=== PATIENT | female | born 1995 | race Caucasian/White ===

== ENCOUNTER 2025-02-02 05:05 | Inpatient (IN) ==
[2025-02-02 05:52] LABS: BASOPHILS % (AUTO) 0.3 %; EOSINOPHILS # (AUTO) 0.1 10^3/uL (0.0-0.7); HCT - HEMATOCRIT 32.5 % (37.0-47.0); HGB - HEMOGLOBIN 10.3 g/dL (12.0-16.0); LYMPHOCYTES # (AUTO) 2.5 10^3/uL (1.5-3.5); LYMPHOCYTES % (AUTO) 21.7 %; MEAN CORPUSCULAR HEMOGLOBIN 26.2 pg (27.0-31.0); MEAN CORPUSCULAR HGB CONC 31.7 g/dL (32.0-36.0); MEAN CORPUSCULAR VOLUME 82.7 fL (81.0-99.0); MEAN PLATELET VOLUME 9.3 fL (7.9-10.8); MONOCYTES # (AUTO) 0.8 10^3/uL (0.0-1.0); MONOCYTES % (AUTO) 7.3 %; NEUTROPHILS # (AUTO) 7.9 10^3/uL (1.5-6.6); NEUTROPHILS % (AUTO) 68.7 %; PLT - PLATELET COUNT 430 10^3/uL (130-450); RED BLOOD COUNT 3.93 10^6/uL (4.20-5.40); RED CELL DISTRIBUTION WIDTH 13.4 % (12.0-15.0); WHITE BLOOD COUNT 11.5 x10^3/uL (4.8-10.8)
[2025-02-02] MEDS: LACTATED RINGERS 1,000 ML IV SCH (06:12)
[2025-02-02] MEDS: ceFAZolin (2G) 2 GM in SODIUM CHLORIDE 0.9% MINIBAG 100 ML IV ONE (06:14)
[2025-02-02] MEDS: ACETAMINOPHEN 500 MG TABLET PO ONE (06:17)
[2025-02-02] MEDS: CITRIC ACID/SODIUM CITRATE 15 ML UDC PO ONE (06:18)
--- NOTE | 2025-02-02 07:05 | HISTORY & PHYSICAL EXAMINATION ---
Admit History Smoking Status: Never smoker Other Maternal History Other Maternal History: Patient is a 29-year-old G2, P1 at 39 weeks 1 day gestation presenting for scheduled primary low-transverse section. She had a history of shoulder dystocia and did not want to have that risk again. She is having some contractions currently. Good movement. Denies loss of fluid. No CARTER/BV or RUQP. No vaginal bleeding. Denies nausea and vomiting. All other symptoms reviewed and were negative except per HPI. Course G2, P1 History of preeclampsia: Developed preeclampsia after last . Was readmitted with magnesium and stayed for about 3 days for blood pressure control. Started aspirin at 12 weeks. History of shoulder dystocia: Per patient lasted about 30 seconds. Was recommended to have a scheduled due to this. Had a 7 pound baby. -Planning on primary low-transverse section, especially given fetus large in the 90th percentile and concerns over repeat shoulder dystocia. History of VSD: Will get recrods from previous history. Referral to [facility]. , but they want her to see cardiology first. Declined need for echocardiogram as she had one several years ago that was normal. [facility] recommends in each , but patient declines. -Had a successful vaginal delivery prior, and then like to be a problem. Now he is also cleared. -Normal echocardiogram. No additional follow up needed. CF carrier, negative LMP: 05/04/2024 BEVER[place] by LMP: 02/08/2025 US: 06/24/2024 @ 7+0 (BEVERLY 02/10/25) Final BEVERLY: 02/08/2025 Pre- Weight: 190 BMI: 32.5 Blood type: A+ Antibody: Negative CBC: PLT 252 HCT 32.1 HGB 10.8 RUB: Immune VZV: Immune HBsAg: Negative HepC: NR RPR/AB-EIA: NR HIV: NR PAP: 04/03/2023 NILM GC/CT: neg from [facility]. HSV: denies Genetic testing:CF carrier, FOB- Neg Covid: Declined Flu: Declined Placenta:Placenta posterior without previa. Third-trimester EFW:93rd percentile, 2186 g 50gm: 137; A1C 4.6 TDAP: 12/31/2024 Breast Pump: 11/25/2024 3rd trimester PLT 252; 32.1/10.8 RPR:Nonreactive GBS: 01/13/2025 positive Delivery plan: Primary section Contraception: HPI Current : Vital Signs Temperature 36.8 C 02/02/25 05:54 Pulse Rate 80 02/02/25 05:54 Respiratory Rate 17 02/02/25 05:54 Blood Pressure 113/77 02/02/25 05:54 Meds/Allgy Home Medications Ambulatory Orders Medication Instructions Recorded Confirmed aspirin 81 mg tablet,delayed 81 mg PO QDAY 11/11/24 01/25/25 release (Adult Aspirin Regimen) vits no.126-ferrous fum tab PO QDAY 11/11/24 01/25/25 28 mg iron-folic acid 800 mcg tablet (Classic ) famotidine 20 mg tablet 20 mg PO BID #60 tabs 01/07/25 01/25/25 Allergies Allergies Allergy/AdvReac Type Severity Reaction Status Date / Time No Known Drug Allergies Allergy Verified 01/13/25 13:24 PFSH Active Problems All Active Problems (Updated 02/02/25 @ 07:10 by Gera Gacria MD) 39 weeks gestation of (Acute) Sore throat (Acute) History of shoulder dystocia in prior (Acute) Supervision of high risk in third trimester (Acute) Flank pain (Acute) Vitamin D deficiency (Acute) Cystic fibrosis carrier (Acute) Ventricular septal defect (Acute) Seborrheic dermatitis (Acute) Polycystic ovary syndrome (Acute) Insomnia (Acute) Chondromalacia of left patella (Acute) ADHD, predominantly inattentive type (Acute) Medical History Medical History (Updated 02/02/25 @ 07:10 by Gera Garcia MD) Female infertility associated with anovulation Supervision of high risk in second trimester Preeclampsia in period Hx of renal calculi H/O anxiety state Family History Family History (Updated 11/11/24 @ 11:35 by Xena Matias RN) Mother Breast cancer Cervical cancer Social History Social History (Updated 11/11/24 @ 11:36 by Xena Matias RN) Smoking Status: Never smoker Second hand tobacco smoke exposure: No Do you dip or chew tobacco?: No Do you vape?: No Living arrangement: At home Level: Independent Do you feel safe in your home environment?: Yes Suffered physical, verbal, emotional, or financial abuse?: No History of Abuse: No ETOH Use: None Substance Use: denies use Are you sexually active?: Yes Control Method: None 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 Respiratory: Normal rate of respiration. No accessory muscle use, normal respiratory effort. Cardiovascular: Regular rate and rhythm Abdomen: Gravid, nontender, nondistended Extremities: Normal range of motion Neuro: Oriented x3. Normal movements Psych: Appropriate mood and affect. Normal judgment and insight FHT: 125 bpm baseline, moderate variability, accelerations present, no decelerations. [place]: 5 to 10 minutes Plan for Labor Plan For Labor I expect patient to be DC'd or transferred within 96 hours.: Yes Conclusion/Plan Problem List (1) 39 weeks gestation of : Plan: Admit to L&D, admit labs, schedule primary low-transverse section. Yazan 5-10 minutes apart, declined need for cervical exam, still wants to proceed with ceasean and does not appear in active labor. section was recommended. Risks, benefits and alternatives were discussed including but not limited to infection, bleeding that may require blood products or hysterectomy for life saving measures, injury to surrounding organs including but not limited to bowel, bladder, ureters, tubes and ovaries and/or the baby. Should injury occur it could require longer/additional surgery to repair. The patient stated understanding and desired to proceed. All questions were answered posed by patient. (2) History of shoulder dystocia in prior : Plan: Counseled on risk of repeat vaginal delivery versus section desires to proceed with vaginal delivery. (3) Cystic fibrosis carrier: Plan: FOB negative. (4) Ventricular septal defect: Plan: Normal echocardiogram. She had an echocardiogram 2 years ago and declined during this . (5) Supervision of high risk in third trimester: Plan: As above Lab Results 02/02/25 05:40
[2025-02-02] MEDS ORDERED: DEXMEDETOMIDINE 200 MCG/2 ML VIAL ONE (07:20)
[2025-02-02] MEDS ORDERED: ONDANSETRON 4 MG/2 ML VIAL ONE ×2 (07:21→08:16)
[2025-02-02] MEDS ORDERED: OXYTOCIN 10 UNIT/ML VIAL ONE (07:22)
[2025-02-02] MEDS ORDERED: PHENYLEPHRINE HCL 0.5 MG/5 ML AMPULE ONE (07:31)
[2025-02-02] MEDS ORDERED: ePHEDrine 50 MG/ML VIAL IVP ONE (07:31)
[2025-02-02] MEDS ORDERED: WATER FOR INJECTION,STERILE 10 ML MC ONE (07:31)
[2025-02-02] MEDS ORDERED: HYDROmorphone 0.5 MG/0.5 ML SYRINGE IVP PRN (07:37)
[2025-02-02] MEDS ORDERED: MORPHINE 2 MG/ML CARPUJECT IVP PRN (07:37)
[2025-02-02] MEDS ORDERED: ATROPINE ABBOJECT 1 MG/10 ML SYRINGE IVP PRN (07:37)
[2025-02-02] MEDS ORDERED: fentaNYL 100 MCG/2 ML VIAL IVP PRN (07:37)
[2025-02-02] MEDS ORDERED: NALOXONE 0.4 MG/ML VIAL IVP PRN (07:37)
[2025-02-02] MEDS ORDERED: ONDANSETRON 4 MG/2 ML VIAL IVP PRN (07:37)
[2025-02-02] MEDS ORDERED: METOCLOPRAMIDE 10 MG/2 ML VIAL IVP PRN (07:37)
[2025-02-02] MEDS ORDERED: ePHEDrine 50 MG/ML VIAL IVP PRN (07:37)
--- NOTE | 2025-02-02 07:37 | ANESTHESIA PROCEDURE NOTE ---
Pre-Anesthesia VS, & Labs Diagnosis Surgical Diagnosis:: elective C/S Procedure Procedure: section Vitals Vital Signs: Temp Pulse Resp BP 36.8 C 80 17 113/77 02/02/25 05:54 02/02/25 05:54 02/02/25 05:54 02/02/25 05:54 NPO NPO: >8 hours Is Patient ?: Yes Lab Results Current Lab Results: Laboratory Tests 02/02/25 05:40: WBC 11.5 H, RBC 3.93 L, Hgb 10.3 L, Hct 32.5 L, MCV 82.7, MCH 26.2 L, MCHC 31.7 L, RDW 13.4, Plt Count 430, MPV 9.3, Neut # (Auto) 7.9 H, Lymph # (Auto) 2.5, [place] # (Auto) 0.8, Eos # (Auto) 0.1, Baso # (Auto) 0.0, Absolute Nucleated RBC 0.00, Nucleated RBC % 0.0, Blood Type A POSITIVE, Antibody Screen NEGATIVE 02/02/25 05:40 Meds/Allgy Home Medications Ambulatory Orders Medication Instructions Recorded Confirmed aspirin 81 mg tablet,delayed 81 mg PO QDAY 11/11/24 01/25/25 release (Adult Aspirin Regimen) vits no.126-ferrous fum tab PO QDAY 11/11/24 01/25/25 28 mg iron-folic acid 800 mcg tablet (Classic ) famotidine 20 mg tablet 20 mg PO BID #60 tabs 01/07/25 01/25/25 Allergies Allergies Allergy/AdvReac Type Severity Reaction Status Date / Time No Known Drug Allergies Allergy Verified 01/13/25 13:24 PFSH Active Problems All Active Problems (Updated 02/02/25 @ 07:10 by Gera Garcia MD) 39 weeks gestation of (Acute) Sore throat (Acute) History of shoulder dystocia in prior (Acute) Supervision of high risk in third trimester (Acute) Flank pain (Acute) Vitamin D deficiency (Acute) Cystic fibrosis carrier (Acute) Ventricular septal defect (Acute) Seborrheic dermatitis (Acute) Polycystic ovary syndrome (Acute) Insomnia (Acute) Chondromalacia of left patella (Acute) ADHD, predominantly inattentive type (Acute) Medical History Medical History (Updated 02/02/25 @ 07:10 by Gera Garcia MD) Supervision of high risk in second trimester Female infertility associated with anovulation Preeclampsia in period Hx of renal calculi H/O anxiety state Family History Family History (Updated 11/11/24 @ 11:35 by Xena Matias RN) Mother Breast cancer Cervical cancer Social History Social History (Updated 11/11/24 @ 11:36 by Xena Matias RN) Smoking Status: Never smoker Second hand tobacco smoke exposure: No Do you dip or chew tobacco?: No Do you vape?: No Living arrangement: At home Level: Independent Do you feel safe in your home environment?: Yes Suffered physical, verbal, emotional, or financial abuse?: No History of Abuse: No ETOH Use: None Substance Use: denies use Are you sexually active?: Yes Control Method: None 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 Yazan 5-10 minutes apart, declined need for cervical exam, still wants to proceed with ceasean and does not appear in active labor. section was recommended. Risks, benefits and alternatives were discussed including but not limited to infection, bleeding that may require blood products or hysterectomy for life saving measures, injury to surrounding organs including but not limited to bowel, bladder, ureters, tubes and ovaries and/or the baby. Should injury occur it could require longer/additional surgery to repair. The patient stated understanding and desired to proceed. All questions were answered posed by patient. (2) History of shoulder dystocia in prior : Plan: Counseled on risk of repeat vaginal delivery versus section desires to proceed with vaginal delivery. (3) Cystic fibrosis carrier: Plan: FOB negative. (4) Ventricular septal defect: Plan: Normal echocardiogram. She had an echocardiogram 2 years ago and declined during this . (5) Supervision of high risk in third trimester: Plan: As above Plan Anesthesia Type: Spinal and Transverse Abdominis Plane (TAP) Block Consent for Procedure(s) Verified and Reviewed: Yes Code Status: Attempt Resuscitation ASA Classification ASA classification: 2-Mild systemic disease Is this case an emergency?: No
[2025-02-02] MEDS ORDERED: LACTATED RINGERS 1,000 ML IV SCH (08:00)
[2025-02-02] MEDS ORDERED: DEXAMETHASONE 4 MG/ML VIAL ONE (08:49)
[2025-02-02] MEDS ORDERED: ROPIVACAINE 0.5% PF 20 ML VIAL ONE (08:49)
[2025-02-02] MEDS ORDERED: ONDANSETRON ODT 4 MG TABLET TL PRN (09:00)
[2025-02-02] MEDS ORDERED: OXYTOCIN/SODIUM CHLORIDE 500 ML IV PRN (09:00)
--- NOTE | 2025-02-02 09:01 | OPERATIVE REPORT ---
Operative Report General Admit Date: 02/02/25 Procedure Data: Operation Date: 02/02/25 07:30 Proposed Procedures p Section(Not Applicable) - Gera Garcia MD Actual Procedures p Section(Not Applicable) - Gera Garcia MD Anesthesia Type Spinal Case Staff Anesthesia Provider: Franchesca Wilcox Anesthesia Provider: Jaqueline Fernandes Assisting Provider: Mamie Yao Case Times Procedure Start: 02/02/25 08:12 Procedure End: 02/02/25 08:55 Time out: 02/02/25 08:05 Pre-Op diagnoses History of shoulder dystocia 39 weeks gestation Ventricular septal defect Postop diagnoses Same Status post primary low-transverse section Delivery of live storey Procedure Note Intake, IV Amount (ml): 1,800 Estimated Blood Loss (ml): 750 Output, Urine Amount (ml): 100 Pathology: None Findings: Normal-appearing uterus, tubes, ovaries. Healthy vigorous . Complications: None Other Other Information/Narrative: section was recommended. Risks, benefits and alternatives were discussed including but not limited to infection, bleeding that may require blood products or hysterectomy for life saving measures, injury to surrounding organs including but not limited to bowel, bladder, ureters, tubes and ovaries and/or the baby. Should injury occur it could require longer/additional surgery to repair. The patient stated understanding and desired to proceed. All questions were answered posed by patient. Prior to being taken to the OR, 2 grams of cefazolin IV was administered. The patient was taken to the operating room where regional anesthesia was found to be adequate. She was then prepared and draped in the usual sterile fashion in the dorsal supine position with a leftward tilt displacing the uterus. Magana was draining to gravity. SCDs were on bilateral lower extremities. Time out was taken. A pfannenstiel skin incision was then made with the scalpel and carried through to the underlying layer of fascia. The fascia was incised in the midline and the incision extended laterally with the Marquez scissors. The superior aspect of the facial incision was then grasped with the Jarett clamps, elevated and the underlying rectus muscles dissected off sharply. Attention was then turned to the inferior aspect of this incision which in a similar fashion was grasped, elevated with the Jarett clamps and the rectus muscle dissected off sharply. The rectus muscles were in the midline. The peritoneum identified, and entered blutly. The peritoneal incision was then extended superiorly and inferiorly with good visualization of the bladder. The bladder blade was inserted. The vesicouterine peritoneum was identified, grasped with the pick- ups, and entered sharply with Metzenbaum scissors. This incision was then extended laterally and the bladder flap created digitally. The bladder blade was reinserted. The lower uterine segment was identified and incised in a transverse fashion with the scalpel. The uterine incision was then extended bluntly laterally. Artificial rupture of membranes demonstrated clear fluid. The bladder blade was removed. The fetus was in a cephalic presentation. The infants head delivered atraumatically. The anterior shoulders were delivered followed by the posterior shoulders then the remainder of the body. The infants mouth and nose were bulb suctioned. The umbilical cord was clamped times two and cut. The was handed to the pediatric team. The placenta was removed with gentle traction. Oxytocin was added to the IV fluid and was allowed to run freely. The uterus was exteriorized and cleared of all clots and debris. The uterine incision was inspected and found to be without any extensions and was repaired with 0 Vicryl in a running, locked fashion. A second imbricating layer was performed. Upon inspection, the repaired hysterotomy was found to be hemostatic. The uterus was firm and returned to the abdomen. The gutters were cleared of all clots and debris. The muscle layer was examined and found to be hemostatic. The fascia was reapproximated with 0 Vicryl in a running fashion. The subcutaneous tissue was closed with 2-0 Vicryl. The skin was closed in a subcuticular fashion with 4-0 Monocryl. The patient tolerated the procedure well. Sponge, lap and needle counts were correct times three. The patient was taken to the recovery room in stable condition. I appreciate the assistance of Dr. Yao during this procedure, and the assistance in retraction, visualization, dissection, and overall assistance during the case were instrumental to the patient's wellbeing.
[2025-02-02] MEDS ORDERED: KETOROLAC 30 MG/ML VIAL ONE (10:06)
[2025-02-02] MEDS: KETOROLAC 30 MG/ML VIAL IVP SCH (10:10)
--- NOTE | 2025-02-02 10:39 | ANESTHESIA POST OP EVALUATION ---
Anesthesia Post Eval Post Anesthesia Eval Vitals: Last Vital Signs Temp 36.4 C L 02/02/25 09:59 Pulse 62 02/02/25 09:59 Resp 17 02/02/25 09:59 BP 100/58 L 02/02/25 09:59 Pulse Ox 100 02/02/25 09:59 CV Function Including HR & BP: Stable Pain Control: Satisfactory Nausea & Vomiting: Negative Mental Status: Baseline Respiratory Status: Airway Patent Hydration Status: Satisfactory Anesthesia Complications: None
--- NOTE | 2025-02-02 13:20 | PHARMACY PROGRESS NOTE ---
Best Possible Medication History Admit Date and Time: 02/02/25 [id number] Home Medications Medication Instructions Recorded Confirmed Type aspirin 81 mg tablet,delayed 81 mg PO DAILY 11/11/24 02/02/25 History release (Adult Aspirin Regimen) vits no.126-ferrous fum 1 tab PO DAILY 11/11/24 02/02/25 History 28 mg iron-folic acid 800 mcg tablet (Classic ) famotidine 20 mg tablet 20 mg PO HS 02/02/25 02/02/25 History Processed by: Pharmacy (Medication reconciliation completed by Salvage EngineerMaegan) Medications reviewed in ED?: No Medication History completed: Yes Patient Interview: Completed Secondary Source(s): Insurance records [facility] Statement: As the person ultimately responsible for medication therapy, providers are able to order a medication from an existing home medication list in [facility] via the "Reconcile Routine" prior to Confirmation of that medication by family readiness support assistant. Such practice is discouraged except when the physician, in their clinical judgment, deems that a medical need exists for a medication without regard to previous use.
[2025-02-02] MEDS: ACETAMINOPHEN 500 MG TABLET PO SCH (13:49)
[2025-02-02] MEDS: SIMETHICONE CHEW 80 MG TABLET PO PRN (13:50)
[2025-02-02] MEDS: oxyCODONE 5 MG TABLET PO PRN ×2 (13:50→23:05)
[2025-02-02] MEDS: DOCUSATE SODIUM 100 MG CAPSULE PO SCH (20:11)
[2025-02-02] MEDS: traZODone 50 MG TABLET PO SCH (22:15)
[2025-02-02] MEDS: FAMOTIDINE 20 MG TABLET PO SCH (22:15)
[2025-02-03] MEDS: IBUPROFEN 600 MG TABLET PO SCH (04:53)
[2025-02-03 06:04] LABS: BASOPHILS % (AUTO) 0.2 %; EOSINOPHILS % (AUTO) 0.1 %; HGB - HEMOGLOBIN 8.8 g/dL (12.0-16.0); LYMPHOCYTES # (AUTO) 2.4 10^3/uL (1.5-3.5); LYMPHOCYTES % (AUTO) 12.4 %; MEAN CORPUSCULAR HEMOGLOBIN 26.2 pg (27.0-31.0); MEAN CORPUSCULAR HGB CONC 31.4 g/dL (32.0-36.0); MEAN CORPUSCULAR VOLUME 83.3 fL (81.0-99.0); MEAN PLATELET VOLUME 9.4 fL (7.9-10.8); MONOCYTES # (AUTO) 1.3 10^3/uL (0.0-1.0); MONOCYTES % (AUTO) 6.4 %; NEUTROPHILS # (AUTO) 15.6 10^3/uL (1.5-6.6); PLT - PLATELET COUNT 384 10^3/uL (130-450); RED BLOOD COUNT 3.36 10^6/uL (4.20-5.40); RED CELL DISTRIBUTION WIDTH 13.5 % (12.0-15.0); WHITE BLOOD COUNT 19.4 x10^3/uL (4.8-10.8)
[2025-02-03] MEDS: DOCUSATE SODIUM 100 MG CAPSULE PO SCH (08:49)
[2025-02-03] MEDS: LACTATED RINGERS 1,000 ML IV SCH (09:01)
[2025-02-03] MEDS: polyethylene glycoL 3350 17 GM PACKET PO PRN (13:14)
--- NOTE | 2025-02-03 22:14 | PROVIDER PROGRESS NOTE ---
Subjective Prog Note Date Prog Note Date: 02/03/25 Prog Note Time: 22:16 Subjective Subjective: Amber was evaluated early in the day at bedside. Reported overall pain well controlled with current medications. She has ambulated in the room, urinating without difficulty. Not yet passing flatus and would like to have BM. Breast feeding and supplementing with formula. Bleeding seems appropriate. Current Medications Current Medications Current Medications: Current Medications Generic Name Dose Route Start Last Admin Trade Name Freq PRN Reason Stop Dose Admin Acetaminophen 1,000 mg 02/02/25 12:00 02/03/25 21:15 Acetaminophen 500 Mg Tablet PO 1,000 mg Q6HR TASHI Administration Docusate Sodium 100 mg 02/03/25 09:00 02/03/25 21:16 Docusate Sodium 100 Mg Capsule PO 100 mg BID TASHI Administration Famotidine 20 mg 02/02/25 21:25 02/03/25 21:16 Famotidine 20 Mg Tablet PO 20 mg BID TASHI Administration Ibuprofen 600 mg 02/03/25 05:00 02/03/25 16:49 Ibuprofen 600 Mg Tablet PO 600 mg Q6H TASHI Administration Ondansetron HCl 4 mg 02/02/25 09:00 Ondansetron Odt 4 Mg Tablet TL Q4HR PRN Nausea / Vomiting Oxycodone HCl 5 mg 02/02/25 09:00 02/02/25 19:15 Oxycodone 5 Mg Tablet PO 5 mg Q4HR PRN Administration Moderate Pain (Level 4-6) Oxycodone HCl 10 mg 02/02/25 22:54 02/03/25 21:16 Oxycodone 5 Mg Tablet PO 10 mg Q4HR PRN Administration Moderate Pain (Level 4-6) Polyethylene Glycol 17 gm 02/03/25 09:48 02/03/25 13:14 Polyethylene Glycol 3350 17 Gm Packet PO 17 gm DAILY PRN Administration Bowel Protocol Simethicone 80 mg 02/02/25 09:00 02/03/25 13:13 Simethicone Chew 80 Mg Tablet PO 80 mg TID PRN Administration Gas Trazodone HCl 50 mg 02/02/25 21:00 02/03/25 21:16 Trazodone 50 Mg Tablet PO 50 mg QPM TASHI Administration Objective Vital Signs/Intake & Output Reviewed Vital Signs: Yes Vital Signs: Vital Signs x48h Temp Pulse Resp BP Pulse Ox 02/03/25 20:08 98.2 F 67 16 124/73 98 Intake & Output: Intake & Output 01/31/25 02/01/25 02/02/25 02/03/25 23:59 23:59 23:59 23:59 Intake Total 5400 / 5400 Output Total 2024 400 / 400 Balance 3375 / 3375 -400 / -400 Weight (kg) 228 lb Objective Comments/Other: Gen: NAD, in bed with baby and daughter Chest: non labored respirations Abd: soft, appropriately TTP, fundus firm, bandage in place is clean and dry Ext: trace LE edema, no evidence of DVT Lab Results 02/03/25 05:46 Other Labs: Lab Results x24hrs 02/03/25 Range/Units 05:46 WBC 19.4 H (4.8-10.8) x10^3/uL RBC 3.36 L (4.20-5.40) 10^6/uL Hgb 8.8 L (12.0-16.0) g/dL Hct 28.0 L (37.0-47.0) % MCV 83.3 (81.0-99.0) fL MCH 26.2 L (27.0-31.0) pg MCHC 31.4 L (32.0-36.0) g/dL RDW 13.5 (12.0-15.0) % Plt Count 384 (130-450) 10^3/uL MPV 9.4 (7.9-10.8) fL Neut # (Auto) 15.6 H (1.5-6.6) 10^3/uL Lymph # (Auto) 2.4 (1.5-3.5) 10^3/uL [place] # (Auto) 1.3 H (0.0-1.0) 10^3/uL Eos # (Auto) 0.0 (0.0-0.7) 10^3/uL Baso # (Auto) 0.0 (0.0-0.1) 10^3/uL Absolute Nucleated RBC 0.00 x10^3/uL Nucleated RBC % 0.0 /100WBC Assessment/Plan Problem List (1) care and examination of lactating mother: Impression: - Doing well postoperatively. Encouraged ambulation today. She will remove bandage in the shower today. Discussed possible discharge home tomorrow if feeling ready.
[2025-02-04 12:27] VITALS: BP 125/76; TEMP 98.1; O2SAT 97
--- NOTE | 2025-02-04 13:41 | Labor Flowsheet ---
Labor Flowsheet Datetime Report Generated by CPN: 02/04/2025 13:41 Datetime: 02/02/2025 12:41 VAGINAL EXAM Membranes Ruptured Date/Time: 02/02/2025 08:19 Membranes Rupture Method: Artificial Amniotic Fluid Color: Clear Amniotic Fluid Odor: None
--- NOTE | 2025-02-08 20:31 | Discharge Summary ---
"Discharge Summary Admit Date: 02/02/25 Discharge Date: 02/04/25 Discharging Provider: Carolynn Schwartz MD Code Status: Attempt Resuscitation DIAGNOSES Admission Diagnoses: term , prior delivery with shoulder dystocia, admitted for c section Discharge Diagnoses with Status of Each Condition: term delivery by C section. acute blood loss anemia, stabe HPI History of Present Illness: 29 yo with her second child. first born with shoulder dystocia. Admitted now for Csection. CONSULTS | PROCEDURES Procedures: Primary low transverse c section. HOSPITAL COURSE Hospital Course: Patient was admitted and C section was performed without difficulty. Preop hct 32.8%. Post op 28.0%. Post operative course was unremarkable and she was discharged home on POD # 2. ALLERGIES Allergies Allergy/AdvReac Type Severity Reaction Status Date / Time No Known Drug Allergies Allergy Verified 01/13/25 13:24 MEDICATIONS Ambulatory Orders Medication Instructions Recorded Confirmed vits no.126-ferrous fum 1 tab PO DAILY 11/11/24 02/02/25 28 mg iron-folic acid 800 mcg tablet (Classic ) famotidine 20 mg tablet 20 mg PO HS 02/02/25 02/02/25 acetaminophen 325 mg capsule 325 - 650 mg (1 - 2 x 325 mg) PO 02/04/25 Q4H PRN pain #60 caps docusate sodium 100 mg capsule 100 mg PO BID PRN constipation #60 02/04/25 (Colace) caps ferrous sulfate 325 mg (65 mg 325 mg PO Q OTHER DAY #45 tabs 02/04/25 iron) tablet ibuprofen 600 mg tablet 600 mg PO Q6H PRN pain #30 tabs 02/04/25 oxycodone 5 mg tablet 5 mg PO Q4H PRN pain #20 tabs 02/04/25 polyethylene glycol 3350 17 17 g PO QDAY PRN constipation #510 02/04/25 gram/dose oral powder (Miralax) grams trazodone 50 mg tablet 50 mg PO QPM #30 tabs 02/04/25 PHYSICAL EXAM AT DISCHARGE General Appearance: positive No acute distress and Alert Respiratory: positive No respiratory distress Cardiovascular: positive Regular rate & rhythm Abdomen: positive Other (normally tender post op. wound healing well, steri strips in place.) Skin: positive Color nml Extremities: positive Non-tender LABS 02/03/25 05:46 FOLLOW UP Follow Up: in clinic 1-2 weeks TIME SPENT Time Spent in Discharge (Minutes): 20 Discharge Plan Discharge Patient Disposition: 01 Home, Self Care Prescriptions: New trazodone 50 mg Tablet 50 mg PO QPM Qty: 30 0RF ferrous sulfate 325 mg (65 mg iron) tablet 325 mg PO Q OTHER DAY Qty: 45 0RF Continued ibuprofen 600 mg tablet 600 mg PO Q6H PRN (Reason: pain) Qty: 30 1RF docusate sodium [Colace] 100 mg capsule 100 mg PO BID PRN (Reason: constipation) Qty: 60 1RF acetaminophen 325 mg capsule 325 - 650 mg PO Q4H PRN (Reason: pain) Qty: 60 1RF polyethylene glycol 3350 [Miralax] 17 gram/dose powder 17 g PO QDAY PRN (Reason: constipation) Qty: 510 0RF oxycodone 5 mg tablet 5 mg PO Q4H PRN (Reason: pain) Qty: 20 0RF famotidine 20 mg tablet 20 mg PO HS Classic 28 mg iron- 800 mcg tablet 1 tab PO DAILY Activity Restrictions/Additional Instructions: nothing in vagina for 6 week. no lifting more than 15 pounds for 6 weeks. OK to shower, no bath for 2 weeks. call if bps are over 140/90 more than once, significant headache, just not feeling well, or very heavy bleeding. Constipation is common. Be sure to eat lots of fruits and veggie, drink lots of water. Coffee can be helpful if you like it and 1 cup is fine for baby. Print Language: Slovak Patient Instructions: Follow-up Care: Gera Garcia MD [Provider Admit Priv/Credential] - (early next week)"
== END 2025-02-04 13:40 | disposition home or self-care (01) | DRG 787 ==
LOC: FBP 05:05
PROVIDERS: ADMIT Obstetrics & Gynecology; ATTEND Obstetrics & Gynecology
DX: Z3A.39 39 weeks gestation of pregnancy; O90.81 Anemia of the puerperium; D62 Acute posthemorrhagic anemia; Z87.59 Personal history of other complications of pregnancy, childbirth and the puerperium; O36.63X0 Maternal care for excessive fetal growth, third trimester, not applicable or unspecified; Z37.0 Single live birth